=== PATIENT | female | born 1970 | race Hispanic/Latino ===

== ENCOUNTER → 2022-03-27 | Outpatient (CLI) | payer OTHER | END | disposition home or self-care (01) | LOC: RAH 09:57 | PROVIDERS: ATTEND Family Medicine | DX: I88.9 Nonspecific lymphadenitis, unspecified (principal) | CPT/HCPCS: 76536 ==

== ENCOUNTER → 2022-11-27 | Outpatient (CLI) | payer OTHER | END | disposition home or self-care (01) | LOC: RAH 09:14 | PROVIDERS: ATTEND Family Medicine | DX: M54.2 Cervicalgia (principal) | CPT/HCPCS: 76536 ==